=== PATIENT | female | born 1970 | race Caucasian/White ===

== ENCOUNTER 2020-05-17 11:45 | Emergency (ER) | payer OTHER ==
--- NOTE | 2020-05-17 15:37 | ER ---
Nurse's Notes [facility] Name: Yasmine Roman Age: 50 yrs Sex: Female : 1970 Arrival Date: 05/17/2020 Time: 11:48 Bed Waiting Private MD: Diagnosis: Presentation: 05/17 12:35 Chief complaint: Patient states: High BP for 2 days, even though taking medications as ll1 prescribed. Has had nasal congestion with slight cough for over 1 week. Has not been flu/covid tested. No fever. Coronavirus screen: Client denies travel out of the [place] in the last 14 days. congestion, cough unrelated to allergies, headache, runny nose, sore throat, Client presents with at least one sign or symptom that may indicate coronavirus-19. Standard/surgical mask placed on the client. Ebola Screen: Patient denies travel to an Ebola-affected area in the 21 days before illness onset. Initial Sepsis Screen: Does the patient meet any 2 criteria? No. Patient's initial sepsis screen is negative. Does the patient have a suspected source of infection? Yes: Productive cough/pneumonia. Risk Assessment: Do you want to hurt yourself or someone else? Patient reports no desire to harm self or others. Onset of symptoms was May 10, 2020. 12:35 Method Of Arrival: Ambulatory ll1 12:35 Acuity: ARMAND 3 ll1 Historical: - Allergies: 12:40 Lovenox; ll1 12:40 Bactrim; ll1 - PMHx: 12:40 Hypertension; High Cholesterol; ll1 - PSHx: 12:40 Hysterectomy; ll1 - Immunization history:: Flu vaccine is up to date. - Social history:: Smoking status: Patient denies any tobacco usage or history of. Vital Signs: 12:35 BP 164 / 111; Pulse 89; Resp 17; Temp 98.1; Pulse Ox 98% ; Weight 87.09 kg; Height 5 ll1 ft. 6 in. (167.64 cm); Pain 0/10; 12:35 Body Mass Index 30.99 (87.09 kg, 167.64 cm) ll1 ED Course: 11:48 Patient arrived in ED. ds1 12:39 Triage completed. ll1 12:40 Arm band placed on. ll1 12:47 Patient stated she was going to go to the Urgent Care since our wait is very long. ll1 Administered Medications: No medications were administered Outcome: 15:36 Patient left the ED. ll1 Signatures: Radha Moore ds1 Ekta Rosa RN RN ll1
[2020-05-17 16:11] VITALS: BP 164/111; TEMP 98.1; O2SAT 98
== END 2020-05-17 15:36 | disposition left against medical advice (07) ==
LOC: ER 11:45
DX: I10 Essential (primary) hypertension (principal); Z53.21 Procedure and treatment not carried out due to patient leaving prior to being seen by health care provider; Z88.1 Allergy status to other antibiotic agents
CPT/HCPCS: 99281